=== PATIENT | female | born 1960 | race Caucasian/White ===

== ENCOUNTER 2024-12-18 11:39 | Outpatient (CLI) | payer OTHER | END 2024-12-18 11:46 | disposition home or self-care (01) | LOC: SONOGRAMA 11:39 | PROVIDERS: ATTEND Pathology Anatomic Pathology & Clinical Pathology | DX: D34 Benign neoplasm of thyroid gland (principal); D37.039 Neoplasm of uncertain behavior of the major salivary glands, unspecified; E04.2 Nontoxic multinodular goiter ==